=== PATIENT | male | born 1945 | race Caucasian/White ===

== ENCOUNTER 2018-08-17 16:19 | Emergency (ER) | payer MEDICARE, SELFPAY ==
[2018-08-17 16:19] VITALS: BP 183/85; PULSE 78; RESP 14; TEMP 36.8; O2SAT 94
--- NOTE | 2018-08-17 16:47 | ED_ITS ---
HPI - Neuro Symptoms/Deficit General Chief Complaint: Neuro Symptoms/Deficit Stated Complaint: stroke symptoms,sent by walk in Time Seen by Provider: 08/17/18 16:36 Source: patient Mode of arrival: ambulatory Limitations: no limitations History of Present Illness HPI Narrative: Patient is a 73-year-old male who started having difficulty speaking about 3 days ago. He thought he felt that his tongue was big but he did not have any lip swelling unilateral weakness or difficulty walking. Today at a was noticed when he was talking to somebody else had his also thought that he she has seen intermittent right-sided facial droop. He has no sensation changes no visual changes. You can tell that he has some difficulty speaking but is able to have a conversation. He feels like his tongue as fat and swollen. Though it is improving over the past couple of days. Onset (ago): day(s) (3) Timing confirmed by: spouse Location: speech History of same: No Severity: mild Related Data Home Medications Medication Instructions Recorded Confirmed trazodone 50 mg PO HS #0 02/16/11 acyclovir 400 mg PO Q DAY #0 03/28/17 Previous Rx's Medication Instructions Recorded prednisone 40 mg PO DAILY #10 tab 08/17/18 Allergies Allergy/AdvReac Type Severity Reaction Status Date / Time Penicillins Allergy Unknown Unverified 08/29/17 12:01 Review of Systems Review of Systems ROS Unobtainable: All systems reviewed & are unremarkable except as noted in HPI and below Constitutional Denies chills, Denies fever(s), Denies lethargy and Denies weakness Eyes Denies change in vision, Denies eye discharge, Denies irritation and Denies loss of vision ENT Ears, Nose, Mouth, and Throat: Denies dizziness Cardiovascular Denies chest pain, Denies syncope, Denies irregular heart rhythm, Denies lightheadedness, Denies palpitations, Denies dyspnea, Denies dyspnea on exertion and Denies orthopnea Respiratory Denies cough, Denies dyspnea, Denies dyspnea on exertion and Denies wheezing Gastrointestinal Gastrointestinal: Denies abdominal pain, Denies change in bowel habits, Denies diarrhea, Denies nausea and Denies vomiting Genitourinary Denies hematuria, Denies flank pain, Denies urinary incontinence and Denies urinary urgency Musculoskeletal Denies back pain, Denies muscle weakness, Denies numbness and Denies tingling Integumentary/Breasts Denies pruritus, Denies erythema, Denies rash and Denies wounds Neurologic Reports as per HPI, Denies dizziness, Denies syncope, Denies loss of vision, Denies numbness, Denies other visual disturbances, Denies tingling and Denies weakness Endocrine Denies palpitations Allergic/Immunologic Denies wheezing [facility] Social History Smoking Status: Never smoker Social History Smoking Status: Never smoker Comment: PCP Dr. Medina Exam Initial Vital Signs Initial Vital Signs: Vital Signs Temperature 98.2 F 08/17/18 16:19 Pulse Rate 78 08/17/18 16:19 Respiratory Rate 14 08/17/18 16:19 Blood Pressure 183/85 H 08/17/18 16:19 Pulse Oximetry 94 08/17/18 16:19 GENERAL: Well-appearing, well-nourished and in no acute distress. HEENT: Head atraumatic,EOMI, pupils reactive, face symmetric, moist mucous membranes , no obvious tongue CARDIOVASCULAR: Regular rate and rhythm without murmurs, rubs or gallops. RESPIRATORY: Breath sounds equal bilaterally, no wheezes rales or rhonchi. ABDOMEN: Soft, nontender. Normoactive bowel sounds all 4 quadrants. No guarding or rebound. EXTREMITIES: Normal range of motion, no clubbing or edema. Neurovascularly intact NEUROLOGICAL: Alert and oriented x4.Normal gait Cranial nerves II through XII grossly intact. Good mzjcjr-ni-deqf, good vyuo-fh-hrkt, strength equal bilaterally, no dysarthria or aphasia, sensation in tact to soft touch bilaterally, no visual changes, no facial droop SKIN: Warm, dry, no laceration, no petechiae, no rashes or lesions. Scores NIH Stroke Scale Level of Conciousness: Alert, keenly responsive Ask month/age: Answers both questions correctly. Open/close eyes, close hand: Performs both tasks correctly Best gaze horizontal: Normal Visual florez: No visual loss Facial palsy: Normal symetrical movement Left arm drift: No drift for full 10 sec Right arm drift: No drift for full 10 sec Left leg drift: No drift for full 10 sec Right leg drift: No drift for full 10 sec Limb ataxia: Absent Sensory on face/arms/legs: Normal, no sensory loss Best language: No aphasia, normal Dysarthria: Mild to mod,some slurring Extinction or inattention: No abnormality Total NIH Stroke scale score: 1 Course Orders Ordered: Discontinued Medications Sodium Chloride (Normal Saline 0.9%) 1,000 mls @ 150 mls/hr IV CONT SELWYN Last Admin: 08/17/18 18:22 Dose: Not Given Methylprednisolone (Solu-Medrol 125 Mg Vial) 125 mg IV NOW ONE Stop: 08/17/18 18:11 Last Admin: 08/17/18 18:22 Dose: 125 mg Consultations Consultation #1: Dr. Azar Time: 18:19 Vital Signs - 8 hr 08/17/18 16:19 08/17/18 17:12 08/17/18 17:32 Temperature 98.2 F Pulse Rate 78 76 78 Respiratory Rate 14 18 18 Blood Pressure 183/85 H Blood Pressure [Right Arm] 149/82 H 149/82 H Pulse Oximetry 94 93 94 MDM - Neuro Symptoms/Deficit Lab Data Attestation: I reviewed the patient's lab results. Result diagrams: 08/17/18 16:50 08/17/18 16:50 Lab Results 08/17/18 08/17/18 08/17/18 Range/Units 16:50 16:50 16:50 WBC 6.9 (4.5-11.0) X10^3/uL RBC 5.37 (4.5-5.9) X10^6/uL Hgb 16.4 (13.5-17.5) g/dL Hct 47.7 (41-53) % MCV 89.0 (80-100) fL MCH 30.6 (26-34) PG MCHC 34.4 (30-36) % RDW 14.1 (11.6-14.8) % Plt Count 252 (150-400) X10^3/uL Neut % (Auto) 66.6 (50-75) % Lymph % (Auto) 20.6 L (25-40) % Norton % (Auto) 8.4 (3-14) % Eos % (Auto) 4.0 (2-4) % Baso % (Auto) 0.4 (0-2) % Neut # (Auto) 4600 (9519-2970) /uL Lymph # (Auto) 1400 (7634-0538) /uL Norton # (Auto) 600 (0-900) /uL Eos # (Auto) 300 (0-450) /uL Baso # (Auto) 0 (0-100) /uL PT 11.5 (10.1-12.7) SECONDS INR 1.0 (0.9-1.3) APTT 33 (26.4-36.2) SECONDS Sodium 139 (137-145) mmol/L Potassium 4.2 (3.4-5.1) mmol/L Chloride 103 (98-107) mmol/L Carbon Dioxide 24 (22-32) mmol/L BUN 13 (9-20) mg/dL Creatinine 0.70 (0.66-1.25) mg/dL Estimated GFR > 60.0 (>60) mL/min BUN/Creatinine Ratio 18.6 (6-22) Glucose 148 H (80-110) mg/dL Calcium 8.9 (8.4-10.2) mg/dL Total Bilirubin 0.7 (0.2-1.3) mg/dL AST 37 (17-59) IU/L ALT 29 (21-72) IU/L Alkaline Phosphatase 64 (38-126) U/L Total Creatine Kinase 116 (55-170) U/L CK-MB (CK-2) 2.60 H (<2.37) ng/mL CK-MB (CK-2) Rel Index 2.2 (1.5-5.0) % Troponin I < 0.012 (0.01-0.034) ng/mL Total Protein 7.4 (6.3-8.2) g/dL Albumin 4.4 (3.5-5.0) g/dL Globulin 3.0 (1.7-4.1) g/dL Albumin/Globulin Ratio 1.5 (1.0-2.8) Imaging Data CT scan - head: Radiologist's impression: PROCEDURE: CT HEAD/BRAIN WO CON INDICATIONS: speech difficulty x 3 days TECHNIQUE: Noncontrast 4.5 mm thick angled axial sections acquired from the foramen magnum to the vertex, with coronal and sagittal reformats. For radiation dose reduction, the following was used: automated exposure control, adjustment of mA and/or kV according to patient size. COMPARISON: None. FINDINGS: Image quality: Excellent. CSF spaces: Basal cisterns are patent. No extra-axial fluid collections. Ventricles are normal in size and shape. Brain: No midline shift. No intracranial masses or hemorrhage. No acute strokes. Aponte-white matter interface is normal. There is extensive basal ganglia iron deposition as well as iron deposition in deep white matter structures as well as aponte-white junction occipital iron deposition bilaterally. This is felt to be a benign process. Skull and face: Calvarium and visualized facial bones are intact, without aaron spicious lesions. Sinuses: Large left maxillary sinus mucous retention cyst. Minimal patchy marry ateral ethmoid disease. IMPRESSION: 1. No evidence of acute stroke, hemorrhage, or mass. 2. Extensive symmetric iron deposition incidentally noted. Dictated by: Terrell Carlson M.D. on 08/17/2018 at 17:58 Approved by: Terrell Carlson M.D. on 08/17/2018 at 18:02 ECG Data Attestation: I personally reviewed and interpreted this ECG as follows: Prior ECG tracings: not available for review Interpretation: Sinus rhythm rate [address] changes no T-wave inversions appear interval 188 MDM Narrative Medical decision making narrative: Patient really feels like his tongue is enlarged and is causing his difficulty speaking. Possible allergic reaction versus CVA versus TIA. He is comprehending and getting appropriate words out he has no other focal deficits. This is been going on for the last 3 days, therefore not a tPA candidate. No large vessel occlusion signs or symptoms. He is not on an CRISTAL-inhibitor no angioedema managing his own secretions. I spoke with Dr. Azar. We both agree with outpatient followup course of prednisone. I have discussed with patient and supple stroke and may need MRI and echocardiogram as outpatient. I discussed all findings with the patient and , Education has been performed regarding treatment plan, diagnosis, warning signs and symptoms and all concerns have been addressed. Verbally agree with and understood all of the above. Discharge Plan Departure Patient Disposition: Home Clinical Impression: Allergic reaction Qualifiers: Encounter type: initial encounter Qualified Code(s): T78.40XA - Allergy, unspecified, initial encounter Discharge Date/Time: 08/17/18 18:40 Interventions: ED Discharge Assessment Last Done: 08/17/18 18:39 Instructions: DI for Transient Ischemic Attack, DI for General Allergic Reactions Activity Restrictions/Additional Instructions: *You have been diagnosed with allergic reaction *What to do: At this time it is likely that you have possible allergic reaction causing her tongue to be swollen. However stroke has not been completely ruled out would need MRI and echocardiogram which her PCP can order. *Continue to take medications as directed Prednisone 40 mg once a day for 5 days *Follow up with your primary care provider in 2-3 days *Return to ER if you should have any facial droop arm weakness leg weakness difficulty walking or any new, worsening or concerning symptoms Prescriptions: New prednisone 20 mg tablet 40 mg PO DAILY Qty: 10 RF: 0 No Action trazodone 50 MG tablet 50 mg PO HS Qty: 0 RF: 0 acyclovir 400 MG tablet 400 mg PO Q DAY Qty: 0 RF: 0 Referrals: Teena Medina MD [Primary Care Provider] -
[2018-08-17 17:05] LABS: Add Manual Diff / Slide Review NO; Basophils Absolute Auto 0 /uL (0-100); Basophils Percent Auto 0.4 % (0-2); Eosinophils Absolute Auto 300 /uL (0-450); Hematocrit 47.7 % (41-53); Hemoglobin 16.4 g/dL (13.5-17.5); Lymphocytes Absolute Auto 1400 /uL (1100-4500); Lymphocytes Percent Auto 20.6 % (25-40); Mean Corpuscular HGB Conc 34.4 % (30-36); Mean Corpuscular Hemoglobin 30.6 PG (26-34); Monocytes Absolute Auto 600 /uL (0-900); Monocytes Percent Auto 8.4 % (3-14); Neutrophils Absolute Auto 4600 /uL (1500-7000); Neutrophils Percent Auto 66.6 % (50-75); Platelet Count 252 X10^3/uL (150-400); Red Blood Cell Count 5.37 X10^6/uL (4.5-5.9); Red Cell Distribution Width 14.1 % (11.6-14.8); White Blood Cell Count 6.9 X10^3/uL (4.5-11.0)
[2018-08-17 17:11] LABS: Prothrombin Time 11.5 SECONDS (10.1-12.7)
[2018-08-17 17:12] VITALS: BP 149/82; PULSE 76; RESP 18; O2SAT 93
[2018-08-17 17:13] LABS: Alanine Aminotransferase 29 IU/L (21-72); Albumin 4.4 g/dL (3.5-5.0); Albumin Globulin Ratio 1.5 (1.0-2.8); Alkaline Phosphatase 64 U/L (38-126); Aspartate Aminotransferase 37 IU/L (17-59); BUN Creatinine Ratio 18.6 (6-22); Bilirubin Total 0.7 mg/dL (0.2-1.3); Blood Urea Nitrogen 13 mg/dL (9-20); Calcium 8.9 mg/dL (8.4-10.2); Carbon Dioxide 24 mmol/L (22-32); Chloride 103 mmol/L (98-107); Creatine Kinase 116 U/L (55-170); Estimated Glomerular Filt Rate > 60.0 mL/min (>60); Glucose 148 mg/dL (80-110); Potassium 4.2 mmol/L (3.4-5.1); Sodium 139 mmol/L (137-145); Total Protein 7.4 g/dL (6.3-8.2)
[2018-08-17 17:14] LABS: HEMOLYSIS 76 (0-50); PTT Partial Thromboplastin Tim 33 SECONDS (26.4-36.2)
[2018-08-17 17:24] LABS: Troponin I < 0.012 ng/mL (0.01-0.034)
[2018-08-17 17:28] LABS: CKMB % Relative Index 2.2 % (1.5-5.0)
[2018-08-17 17:32] VITALS: BP 149/82; PULSE 78; RESP 18; O2SAT 94
[2018-08-17] MEDS: methylPREDNISolone 125 MG/2 ML VIAL IV (18:22)
[2018-08-17 18:37] VITALS: BP 142/80; PULSE 72; RESP 18; O2SAT 98
== END 2018-08-17 18:40 | disposition home or self-care (01) ==
PROVIDERS: Emergency Provider Emergency Medicine; PCP Family Medicine
DX: T78.40XA Allergy, unspecified, initial encounter (principal); R47.89 Other speech disturbances; R29.810 Facial weakness
CPT/HCPCS: 36591; 70450; 80053; 82550; 82553; 84484; 85025; 85610; 85730; 93005; 96374; 99283; 99284; J2930

== ENCOUNTER → 2018-08-22 05:53 | Outpatient (CLI) | payer MEDICARE, SELFPAY ==
--- NOTE | 2018-08-22 | DI.MRI.S_ITS ---
PROCEDURE: MR STROKE Pre- and post-contrast brain MRI, non-contrast brain MR angiogram, pre- and postcontrast neck MR angiogram INDICATIONS: APHASIA TECHNIQUE: Brain: Noncontrast axial T1 spin echo, axial T2 fast spin echo, sagittal and axial FLAIR, coronal T2 fast spin echo, axial gradient echo, axial diffusion and ADC through the brain. After the administration of contrast, axial 3D VIBE of the cranial vasculature and brain. Brain MRA: Non-contrast 3-D time of flight MR angiogram, with multiple uwdchce-rrimphwof-zdhxzrowkk (MIP) reformats performed. Neck MRA: Axial and sagittal TruFISP through the neck. Coronal dynamic MR angiogram during administration of contrast in the arterial and venous phases, with 3-dimenstional poumrqa-rmxgyovjv-rfcvpzjywz (MIP) reformats constructed from subtraction images. COMPARISON: [facility], CT, CT HEAD/BRAIN WO CON, 08/17/2018, 16:50. FINDINGS: Image quality: Excellent. BRAIN: CSF spaces: Ventricles are normal in size and shape. Basal cisterns are patent. No extra-axial fluid collections. Brain: No intracranial bleeds or mass effects. Aponte-white matter interface is normal. A small focus of restricted diffusion is noted in the left thalamus compatible with a subacute infarct. An old, small, lacunar infarct noted in the left brady radiata. Moderate periventricular and subcortical white matter chronic microvascular ischemic changes. There is moderate, diffuse cerebral volume loss. Brainstem appears normal. Normal intravascular flow voids are present. No abnormal intracranial enhancement. Skull and face: Calvarial marrow signal is normal. Orbits appear normal. Sinuses: Mucosal thickening noted in the maxillary sinuses bilaterally. Bilateral maxillary sinus mucus retention cyst versus polyps. Left sphenoid sinus mucus rotation cyst versus polyp. mastoids are clear. BRAIN MR ANGIOGRAM: Anterior circulation: Intracranial internal carotid arteries are normal in size and enhancement. The flow within the paired anterior cerebral arteries is normal and symmetric. The flow within the middle cerebral arteries is normal and symmetric. The anterior communicating artery is seen. No stenoses, occlusions, or aneurysms. Posterior circulation: The visualized portions of the vertebral arteries demonstrate normal caliber, and join to form a normal appearing basilar artery. The flow within the posterior cerebral arteries is normal and symmetric. No stenoses, occlusions, or aneurysms. NECK MR ANGIOGRAM: Carotids: Great vessels demonstrate bovine variant anatomy as they arise from the aortic arch. The origins of the common carotid arteries appear patent. The calibers and courses of both common carotid arteries are normal. The bifurcation regions appear normal bilaterally. The internal carotid arteries demonstrate normal course and caliber. Posterior circulation: The origins of the vertebral arteries appear patent. More superior portions of both vertebral arteries demonstrate normal course and caliber, and join to form a normal appearing basilar artery. Miscellaneous: Subclavian arteries appear patent. Pre-contrast images through the neck show no soft tissue abnormalities. IMPRESSION: BRAIN MRI: 1. Subacute left thalamic lacunar infarct. 2. Chronic left brady radiata lacunar infarct. 3. Mild, diffuse cerebral volumes. 4. Moderate periventricular and subcortical white matter chronic microvascular ischemic changes. 5. No suspicious intracranial postcontrast enhancement. BRAIN MR ANGIOGRAM: Negative examination. NECK MR ANGIOGRAM: Negative examination. Dictated by: Isaeblla Cloud MD, PhD on 08/22/2018 at 11:53 Approved by: Isabella Cloud MD, PhD on 08/22/2018 at 12:01
== END ==
PROVIDERS: PCP Family Medicine; Visit Provider Family Medicine
DX: I63.81 Other cerebral infarction due to occlusion or stenosis of small artery (principal); R47.01 Aphasia
CPT/HCPCS: 70553; A9579

== ENCOUNTER → 2018-08-27 07:48 | Outpatient (CLI) | payer MEDICARE, SELFPAY ==
--- NOTE | 2018-08-27 | DI.ECHO.S_ITS ---
[facility] +---------+ : : [address] : : [place], [place] : : : : [id number] : : : : Phone: [phone] Echocardiogram Report + + :Name: AMANUEL ORNELAS Study Date: 08/27/2018 Height: 68 in : :[facility] Exam Location: [facility] Weight: 174 lb : : Gender: Male BSA: 1.9 m2 : :: 1945 Age: 73 yrs BP: 120/90 mmHg: :Reason For Study: Aphasia : :Ordering Physician: Krish : :Nissa Performed By: Jayshree Page : + + Interpretation Summary 1) Mildly increased left ventricular thickness with normal size, wall motion, and systolic function (EF 60-65%). 2) Normal right ventricular size and function. 3) The right coronary cusp and left coronary cusp of the aortic valve are mostly fused. Possible bicuspid aortic valve. 4) There is mild aortic regurgitation. 5) There is mild aortic stenosis. 6) The aortic root is moderately dilated at 4.5cm. 7) Mild atherosclerotic plaque(s) in the aortic arch. 8) Sinus rhythm during the study. 9) No prior Echo available for comparison. Procedure: A two-dimensional transthoracic echocardiogram with color flow and Doppler was performed. The study quality was technically adequate. There is no prior echocardiogram noted for this patient. The patient was in normal sinus rhythm during the exam. The patient had occasional PVCs during the exam. Left Ventricle: Left ventricular wall thickness is mildly increased. The left ventricle is normal in size. The ejection fraction is estimated to be 60- 65%. There are no focal wall motion abnormalities. Right Ventricle: The right ventricle is normal in size and function. Atria: The left atrium is mildly dilated. Right atrial size is normal. There is no Doppler evidence for an interatrial shunt. Mitral Valve: There is a flat closure plane of the the mitral valve leaflets. There is mild mitral annular calcification. There is trace mitral regurgitation. Aortic Valve: The right coronary cusp and left coronary cups of the aortic valve are mostly fused. Possible bicuspid aortic valve. There is mild aortic stenosis. There is mild aortic regurgitation. Tricuspid Valve: The tricuspid valve is normal in structure and function. There is trace tricuspid regurgitation. The right ventricular systolic pressure is estimated to be at least 36 mmHg based on an estimated right atrial pressure of 3 mm Hg. Pulmonic Valve: The pulmonic valve is not well seen, but is grossly normal. There is mild pulmonic regurgitation. Great Vessels: The aortic root is moderately dilated. The ascending aorta is at the upper limits of normal in size. Mild atherosclerotic plaque(s) in the aortic arch. The pulmonary artery is not well visualized, but is probably normal size. The IVC is of normal diameter and collapses greater than 50% with a sniff. This suggests a low right atrial pressure of 3 mm Hg. MMode/2D Measurements & Calculations LVIDd: 4.9 cm LVOT diam: 2.1 cm LVIDs: 2.9 cm Ao root diam: 4.5 cm FS: 40.7 % asc Aorta Diam: 3.4 cm EPSS: 1.1 cm IVSd: 1.2 cm LVPWd: 0.89 cm LV sousa. diameter/BSA (cm/m^2): 2.5 LV sys. diameter/BSA (cm/m^2): 1.5 LA A2 area: 21.3 cm2 RA long axis: 5.0 cm LA A4 area: 21.2 cm2 RA area: 17.7 cm2 LA length (vol): 5.6 cm RA vol: 53.0 ml LA vol: 68.4 ml RA : 27.5 ml/m2 LA vol index: 35.5 ml/m2 IVC diam: 1.5 cm RVD1 (basal): 4.3 cm Doppler Measurements & Calculations Ao V2 max: 230.4 cm/sec LVOT Max Danny: 87.2 cm/sec Ao V2 mean: 156.6 cm/sec LV V1 max P.0 mmHg Ao max P.2 mmHg LV V1 VTI: 20.6 cm Ao mean P.0 mmHg JULISSA(I,D): 1.5 cm2 Ao V2 VTI: 47.8 cm JULISSA(V,D): 1.3 cm2 sev ratio: 0.43 JULISSA indexed to BSA (cm^2/m^2): 0.79 AI P1/2t: 392.8 msec AI dec slope: 325.1 cm/sec2 MV E max danny: 64.5 cm/sec TR max danny: 287.1 cm/sec MV A max danny: 81.9 cm/sec TR max P.0 mmHg MV E/A: 0.79 PA V2 max: 59.8 cm/sec Med Peak E' Danny: 4.3 cm/sec PA V2 mean: 40.4 cm/sec E/E' med: 14.9 PA mean P.73 mmHg Lat Peak E' Danny: 6.1 cm/sec PA Accel Time: 0.07 sec E/E' lat: 10.6 E/e' average: 12.8 MV dec time: 0.28 sec MV P1/2t: 81.7 msec MV P1/2t max danny: 64.2 cm/sec SV(LVOT): 72.5 ml MVA(2t): 2.7 cm2 Reading Physician:12:51 PM
== END ==
PROVIDERS: PCP Family Medicine; Visit Provider Family Medicine
DX: I35.2 Nonrheumatic aortic (valve) stenosis with insufficiency (principal); I37.1 Nonrheumatic pulmonary valve insufficiency; I70.0 Atherosclerosis of aorta; R47.01 Aphasia
CPT/HCPCS: 93306

== ENCOUNTER → 2018-12-13 09:35 | Outpatient (CLI) | payer MEDICARE, SELFPAY ==
--- NOTE | 2018-12-13 | DI.US.S_ITS ---
PROCEDURE: US PERIPH VENOUS LOW EXTREM LT INDICATIONS: LEFT LEG PAIN AND SWELLING TECHNIQUE: Real-time imaging, as well as color and pulse Doppler interrogation, were performed of the lower extremity deep veins from the inguinal ligament to the popliteal fossa. COMPARISON: None. FINDINGS: The common femoral, femoral and popliteal veins are normally compressible, and free of intraluminal thrombus. Color and pulse Doppler demonstrate normal phasic intraluminal flow. There is normal augmentation response to distal compression maneuver. Soft tissue swelling is present along the medial aspect of the ankle with fluid contained within the adjacent tendon sheaths. IMPRESSION: 1. No evidence of left lower extremity deep vein thrombosis. 2. Possible medial flexor tenosynovitis at the level of the ankle. The need for better characterization utilizing MRI may be determined clinically. Dictated by: Sergey Cross M.D. on 12/13/2018 at 9:37 Approved by: Sergey Cross M.D. on 12/13/2018 at 9:38
== END ==
PROVIDERS: PCP Family Medicine; Visit Provider Family Medicine
DX: M25.572 Pain in left ankle and joints of left foot (principal); M25.562 Pain in left knee; R60.9 Edema, unspecified
CPT/HCPCS: 93971

== ENCOUNTER 2020-04-06 08:23 | Emergency (ER) | payer MEDICARE, SELFPAY ==
[2020-04-06] VITALS (15 sets, daily range): BP systolic 123–202; BP diastolic 78–92; PULSE 66–79; RESP 14–23; TEMP 36.4; O2SAT 91–98; BMI 23.8
--- NOTE | 2020-04-06 08:32 | DI.RAD.S_ITS ---
PROCEDURE: XR CHEST 1V INDICATIONS: chest pain TECHNIQUE: One view of the chest was acquired. COMPARISON: [facility], CHEST 2 VIEW, 03/17/2013, 9:15. [facility], CHEST 2 VIEW, 03/20/2013, 6:19. [facility], CHEST 2 VIEW, 04/24/2013, 13:08. FINDINGS: Surgical changes and devices: None. Lungs and pleura: On this semiupright portable chest examination, no large pneumothorax or large pleural effusions are seen. No focal infiltrates are seen. Mediastinum: The cardiac contours are within normal limits. The aorta demonstrates calcification and tortuosity. Bones and chest wall: No suspicious bony lesions. Remote right posterior rib fractures are seen. Age-appropriate bony degenerative changes are seen. Overlying soft tissues appear unremarkable. IMPRESSION: No acute abnormality is seen. Note made of remote right posterior rib fractures. Dictated by: Roosevelt Solis M.D. on 04/06/2020 at 8:09 Approved by: Roosevelt Solis M.D. on 04/06/2020 at 8:10
[2020-04-06 08:56] LABS: Add Manual Diff / Slide Review NO; Basophils Absolute Auto 0 /uL (0-100); Basophils Percent Auto 0.1 % (0-2); Eosinophils Absolute Auto 0 /uL (0-450); Eosinophils Percent Auto 0.6 % (2-4); Hematocrit 47.9 % (41-53); Hemoglobin 15.9 g/dL (13.5-17.5); Lymphocytes Absolute Auto 600 /uL (1100-4500); Lymphocytes Percent Auto 7.1 % (25-40); Mean Corpuscular HGB Conc 33.1 % (30-36); Mean Corpuscular Hemoglobin 30.4 PG (26-34); Mean Corpuscular Volume 91.7 fL (80-100); Monocytes Absolute Auto 300 /uL (0-900); Monocytes Percent Auto 3.8 % (3-14); Neutrophils Absolute Auto 7000 /uL (1500-7000); Neutrophils Percent Auto 88.4 % (50-75); Platelet Count 239 X10^3/uL (150-400); Red Blood Cell Count 5.23 X10^6/uL (4.5-5.9); Red Cell Distribution Width 14.8 % (11.6-14.8); White Blood Cell Count 7.9 X10^3/uL (4.5-11.0)
[2020-04-06 09:03] LABS: Prothrombin Time 11.6 SECONDS (10.1-12.7)
[2020-04-06 09:05] LABS: PTT Partial Thromboplastin Tim 32 SECONDS (26.4-36.2)
[2020-04-06 09:10] LABS: Alanine Aminotransferase 20 IU/L (<50); Albumin 4.3 g/dL (3.5-5.0); Albumin Globulin Ratio 1.4 (1.0-2.8); Alkaline Phosphatase 76 U/L (38-126); Aspartate Aminotransferase 29 IU/L (17-59); BUN Creatinine Ratio 27.1 (6-22); Bilirubin Total 0.6 mg/dL (0.2-1.3); Blood Urea Nitrogen 19 mg/dL (9-20); Calcium 8.9 mg/dL (8.4-10.2); Carbon Dioxide 33 mmol/L (22-32); Chloride 101 mmol/L (98-107); Creatine Kinase 71 U/L (55-170); Estimated Glomerular Filt Rate > 60.0 mL/min (>60); Globulin 3.1 g/dL (1.7-4.1); Glucose 155 mg/dL (80-110); HEMOLYSIS < 15 (0-50); Lipase 63 U/L (23-300); Potassium 4.4 mmol/L (3.4-5.1); Sodium 138 mmol/L (137-145); Total Protein 7.4 g/dL (6.3-8.2)
[2020-04-06 09:19] LABS: Troponin I < 0.012 ng/mL (0.01-0.034)
--- NOTE | 2020-04-06 09:42 | ED_ITS ---
HPI - Neuro Symptoms/Deficit General Chief Complaint: Neuro Symptoms/Deficit Stated Complaint: dizzy,stumbling,pulse is low Time Seen by Provider: 04/06/20 09:05 Source: patient Mode of arrival: Ambulatory Limitations: no limitations History of Present Illness HPI Narrative: This is a 75-year-old male comes to the emergency department with complaint of feeling dizzy and off balance. He states he stumbling around. Patient states that he went to bed at 10:30 a.m. last night, he woke up at 3:30 a.m. and had some symptoms trying to walk to the bathroom and returning to bed. Would sort of fatigue over time but never resolved and would return when he would get up and move again. Laying in bed does not bother him but when he stands up or walks around he feels like the whole world sort of shifts. It is not a spinning feeling but more of a single movement. He went back to sleep woke up at 5:00 a.m. continued to have the same symptoms but not as intensely. Checked his blood pressure which was between the 140s and 120s noted his heart rate was in the 50s and is normally in the 60s. He has had some mild nausea with symptoms. No vomiting. No headache, no vision changes, no difficulty with speech, no facial droop. No numbness tingling or weakness in his extremities. No issues with bowel movements. He has chronic urinary retention but states did not have any issues today. He does feel little bit more tired and fatigued. He has a history of a stroke 2 years ago he had expressive aphasia and facial droop. He has had episodes of dizziness or almost vertigo like symptoms but states this feels different. He does take an aspirin 81 mg daily, lisinopril, pravastatin and Flomax as well as acyclovir. Denies tobacco, alcohol or illicit On Anticoagulants: No (asa 81mg) Related Data Home Medications Medication Instructions Recorded Confirmed acyclovir 400 mg PO Q DAY #0 03/28/17 02/26/19 albuterol sulfate 90 mcg/actuation 2 puff INHALATION Q6H PRN 02/26/19 02/26/19 aerosol inhaler aspirin 81 mg tablet,delayed 81 mg PO DAILY 02/26/19 02/26/19 release calcium carbonate 500 mg calcium 500 mg PO DAILY 02/26/19 02/26/19 (1,250 mg) tablet lisinopril 2.5 mg tablet 2.5 mg PO DAILY 02/26/19 02/26/19 multivitamin 1 tab PO DAILY 02/26/19 02/26/19 pravastatin 10 mg tablet 10 mg PO DAILY 02/26/19 02/26/19 tamsulosin 0.4 mg capsule 0.4 mg PO DAILY 02/26/19 02/26/19 zinc 50 mg tablet 50 mg PO DAILY 02/26/19 02/26/19 Previous Rx's Medication Instructions Recorded meclizine 25 mg PO TID PRN #10 tab 04/06/20 Allergies Allergy/AdvReac Type Severity Reaction Status Date / Time famciclovir [From Famvir] Allergy Mild Verified 02/26/19 10:23 Penicillins Allergy Unknown Unverified 02/26/19 10:23 Review of Systems Review of Systems ROS Unobtainable: All systems reviewed & are unremarkable except as noted in HPI and below Patient History Medical History (Updated 04/06/20 @ 12:44 by Alayna Patrick DO) CVA (cerebral vascular accident) Dyslipidemia Hypertension Social History Smoking Status: Never smoker Smoking Status: Never smoker alcohol intake frequency: 0-2 drinks per day Substance Use Type: does not use Exam Narrative Exam Narrative: GEN: well nourished, well appearing male, alert and oriented x 3, patient appears to be in mild distress. HEENT: Atraumatic, pupils are equal round reactive to light, extraocular movements are intact, no nystagmus, nares are clear. Throat is clear without any exudates, erythema, tonsillar enlargement or uvular, no facial droop appreciated. Deviation HEART: Regular rate and rhythm without murmur, clicks, rubs. Pulses are equal in upper and lower extremities LUNGS:Lungs clear to auscultation, no wheezes, rales, crackles, chest moves symmetrically ABD:bowel sounds normal, soft, non-tender, no guarding, rebound, rigidity, no masses noted, no hepatosplenomegaly MSCL: Non-tender, no muscle atrophy, muscles strength 5/5 upper and lower extremities, full range of motion NEURO:CN 2-12 intact, sensation normal, reflexes 2/4 upper and lower extremities. finger nose finger test normal, heel [place] test normal Initial Vital Signs Initial Vital Signs: Vital Signs Pulse Rate 72 04/06/20 08:30 Respiratory Rate 16 04/06/20 08:30 Blood Pressure 187/86 H 04/06/20 08:30 Pulse Oximetry 98 04/06/20 08:30 Scores NIH Stroke Scale Level of Conciousness: Alert, keenly responsive Ask month/age: Answers both questions correctly. Open/close eyes, close hand: Performs both tasks correctly Best gaze horizontal: Normal Visual florez: No visual loss Facial palsy: Normal symetrical movement Left arm drift: No drift for full 10 sec Right arm drift: No drift for full 10 sec Left leg drift: No drift for full 5 sec Right leg drift: No drift for full 5 sec Limb ataxia: Absent Sensory on face/arms/legs: Normal, no sensory loss Best language: No aphasia, normal Dysarthria: Normal Extinction or inattention: No abnormality Total NIH Stroke scale score: 0 Course Orders Ordered: ED Orders 04/06/20 10:48 MR stroke Stat Discontinued Medications Aspirin (Aspirin 81 Mg Chew Tab) 324 mg PO NOW ONE Stop: 04/06/20 10:38 Last Admin: 04/06/20 12:19 Dose: 324 mg Documented by: BTONER Labetalol HCl (Labetalol 20 Mg/4 Ml Syringe) 5 mg IV NOW ONE Stop: 04/06/20 10:50 Last Admin: 04/06/20 12:18 Dose: 5 mg Documented by: BTONER Vital Signs Vital signs: Vital Signs - 8 hr 04/06/20 12:07 04/06/20 12:08 04/06/20 12:18 Pulse Rate 79 77 76 Respiratory Rate 18 15 Blood Pressure 169/85 H 169/83 H Pulse Oximetry 93 95 04/06/20 12:23 04/06/20 12:25 04/06/20 12:30 Pulse Rate 74 71 66 Respiratory Rate 19 19 16 Blood Pressure 150/92 H 123/78 150/82 H Pulse Oximetry 95 94 95 04/06/20 13:00 04/06/20 13:07 Pulse Rate 68 68 Respiratory Rate 18 Blood Pressure 152/91 H 152/91 H Pulse Oximetry 94 MDM - Neuro Symptoms/Deficit Lab Data Attestation: I reviewed the patient's lab results. Result diagrams: 04/06/20 08:45 11/17/20 08:45 Labs: Lab Results 04/06/20 04/06/20 04/06/20 Range/Units 08:45 08:45 08:45 WBC 7.9 (4.5-11.0) X10^3/uL RBC 5.23 (4.5-5.9) X10^6/uL Hgb 15.9 (13.5-17.5) g/dL Hct 47.9 (41-53) % MCV 91.7 (80-100) fL MCH 30.4 (26-34) PG MCHC 33.1 (30-36) % RDW 14.8 (11.6-14.8) % Plt Count 239 (150-400) X10^3/uL Neut % (Auto) 88.4 H (50-75) % Lymph % (Auto) 7.1 L (25-40) % [place] % (Auto) 3.8 (3-14) % Eos % (Auto) 0.6 L (2-4) % Baso % (Auto) 0.1 (0-2) % Neut # (Auto) 7000 (3028-1750) /uL Lymph # (Auto) 600 L (2107-7910) /uL [place] # (Auto) 300 (0-900) /uL Eos # (Auto) 0 (0-450) /uL Baso # (Auto) 0 (0-100) /uL PT 11.6 (10.1-12.7) SECONDS INR 1.0 (0.9-1.3) APTT 32 (26.4-36.2) SECONDS Sodium 138 (137-145) mmol/L Potassium 4.4 (3.4-5.1) mmol/L Chloride 101 (98-107) mmol/L Carbon Dioxide 33 H (22-32) mmol/L BUN 19 (9-20) mg/dL Creatinine 0.70 (0.66-1.25) mg/dL Estimated GFR > 60.0 (>60) mL/min BUN/Creatinine Ratio 27.1 H (6-22) Glucose 155 H (80-110) mg/dL Calcium 8.9 (8.4-10.2) mg/dL Total Bilirubin 0.6 (0.2-1.3) mg/dL AST 29 (17-59) IU/L ALT 20 (<50) IU/L Alkaline Phosphatase 76 (38-126) U/L Total Creatine Kinase 71 (55-170) U/L CK-MB (CK-2) TNP CK-MB (CK-2) Rel Index TNP Troponin I < 0.012 (0.01-0.034) ng/mL Total Protein 7.4 (6.3-8.2) g/dL Albumin 4.3 (3.5-5.0) g/dL Globulin 3.1 (1.7-4.1) g/dL Albumin/Globulin Ratio 1.4 (1.0-2.8) Lipase 63 (23-300) U/L Imaging Data Chest x-ray: Radiologist's Impression: [address] [id number] ReportSigned Patient: Jareth Segundo JMR#: [id number]: 4Acct:[id number]/Sex: 75 / MDate of Service: 04/06/20Loc: EDAccession Number: [id number] Procedure: XR chest 1V Ordering Provider: Alayna Patrick D.O. PROCEDURE: XR CHEST 1V INDICATIONS: chest pain TECHNIQUE: One view of the chest was acquired. COMPARISON: [facility], CHEST 2 VIEW, 03/17/2013, 9:15. [facility], CHEST 2 VIEW, 03/20/2013, 6:19. [facility], CHEST 2 VIEW, 04/24/2013, 13:08. FINDINGS: Surgical changes and devices: None. Lungs and pleura: On this semiupright portable chest examination, no large pneumothorax or large pleural effusions are seen. No focal infiltrates are seen. Mediastinum: The cardiac contours are within normal limits. The aorta demonstrates calcification and tortuosity. Bones and chest wall: No suspicious bony lesions. Remote right posterior rib fractures are seen. Age-appropriate bony degenerative changes are seen. Overlying soft tissues appear unremarkable. IMPRESSION: No acute abnormality is seen. Note made of remote right posterior rib fractures. Dictated by: Roosevelt Solis M.D. on 04/06/2020 at 8:09 Approved by: Roosevelt Solis M.D. on 04/06/2020 at 8:10 MRI stroke : Radiologist's Impression: [facility] [place] [id number] Resonance Rep ortSigned Patient: Jareth Segundo JMR#: [id number]: 4Acct:[id number]/Sex: 75 / MDate of Service: 04/06/20Loc: EDAccession Number: [id number] Procedure: MR stroke Ordering Provider: Alayna Patrick D.O. PROCEDURE: MR STROKE Pre- and post-contrast brain MRI, non-contrast brain MR angiogram, pre- and postcontrast neck MR angiogram INDICATIONS: ataxia, off balance TECHNIQUE: Brain: Noncontrast axial T1 spin echo, axial T2 fast spin echo, sagittal and axial FLAIR, coronal T2 fast spin echo, axial gradient echo, axial diffusion and ADC through the brain. After the administration of contrast, axial 3D VIBE of the cranial vasculature and brain. Brain MRA: Non-contrast 3-D time of flight MR angiogram, with multiple hgonvep-kppyxfavs-gbkapzmydi (MIP) reformats performed. Neck MRA: Axial and sagittal TruFISP through the neck. Coronal dynamic MR krystin ogram during administration of contrast in the arterial and venous phases, with 3- dimenstional kzvrxkc-ewnphstsd-biltovjayt (MIP) reformats constructed from subtraction images. COMPARISON: [facility], MR, MR STROKE, 08/22/2018, 6:54. [facility], CT, CT HEAD/BRAIN WO CON, 04/06/2020, 9:49. FINDINGS: Image quality: Diagnostic, with note made of motion artifact. BRAIN: CSF spaces: Ventricles are normal in size and shape. Basal cisterns are patent. No extra-axial fluid collections. Brain: No intracranial bleeds or mass effects. Aponte-white matter interface is normal. Brain parenchymal volume loss is seen. Chronic small vessel ischemic changes are seen. Diffusion weighted images show no acute ischemic insults. The remote infarction of the deep white matter of the left frontal lobe can be seen. Brainstem appears normal. Normal intravascular flow voids are present. No abnormal intracranial enhancement. Symmetric basal ganglia calcium deposition is again seen. Skull and face: Calvarial marrow signal is normal. Orbits appear normal. Sinuses: There is a left sphenoid sinus mucous retention cyst as well as maxillary sinus mucous retention cysts. Sinuses and mastoids are otherwise relatively clear. BRAIN MR ANGIOGRAM: Anterior circulation: Intracranial internal carotid arteries are normal in size and enhancement. The flow within the paired anterior cerebral arteries is normal and symmetric. The flow within the middle cerebral arteries is normal and symmetric. The anterior communicating artery is seen. No stenoses, occlusions, or aneurysms. Posterior circulation: The visualized portions of the vertebral arteries demonstrate normal caliber, and join to form a normal appearing basilar artery. The flow within the posterior cerebral arteries is normal and symmetric. No stenoses, occlusions, or aneurysms. NECK MR ANGIOGRAM: Carotids: Great vessels demonstrate a conventional anatomy as they arise from the aortic arch. The origins of the common carotid arteries appear patent. The calibers and courses of both common carotid arteries are normal. The bifurcation regions appear normal bilaterally. The internal carotid arteries demonstrate normal course and caliber. Posterior circulation: The origins of the vertebral arteries appear patent. More superior portions of both vertebral arteries demonstrate normal course and caliber, and join to form a normal appearing basilar artery. Miscellaneous: Subclavian arteries appear patent. Pre-contrast images through the neck show no soft tissue abnormalities. IMPRESSION: BRAIN MRI: No findings of acute or subacute infarction can be seen. Note is made of age-appropriate brain parenchymal volume loss and chronic small vessel ischemic changes. Remote infarction seen of the deep white matter of the left frontal lobe. No masses or abnormal enhancement can be seen. BRAIN MR ANGIOGRAM: No significant intracranial arterial abnormality is seen. NECK MR ANGIOGRAM: Within the arteries of the neck, no hemodynamically significant stenosis can be seen. Dictated by: Roosevelt Solis M.D. on 04/06/2020 at 10:57 Approved by: Roosevelt Solis M.D. on 04/06/2020 at 11:03 ECG Data Prior ECG tracings: available for review Interpretation: NSR, prolonged QTC 516, pr 188, rate of 68, QRS 112. Nonspeicfic change. MDM Narrative Medical decision making narrative: Patient comes in distally having some kind of balance issues. Concern for CVA although his NIH is 0. Is able to get an MRI which was negative. Discussed with Dr. Medina who will follow with patient. Stroke Core Measures Exclusion Criteria TPA in CVA: Symptom Onset >3 or 4.5 Hours Discharge Plan Departure Patient Disposition: Home Clinical Impression: Balance problem Activity Restrictions/Additional Instructions: Your imaging and evaluation today do not show any acute signs of stroke and your MRI also does not show any acute signs. There is an old stroke on your MRI today. Continue home medications as prescribed. If you find it helpful you can take meclizine 1-2 tablets every 6-8 hours. Return to the ER for fevers, lightheadedness, passing out, rapidly worsening symptoms, if you feel your unsafe ambulating, persistent vomiting, new weakness numbness or tingling, difficulty with speech or other new or concerning symptoms. Prescriptions: New meclizine 25 mg tablet 25 mg PO TID PRN (Reason: dizziness) Qty: 10 RF: 0 No Action acyclovir 400 MG tablet 400 mg PO Q DAY Qty: 0 RF: 0 lisinopril 2.5 mg tablet 2.5 mg PO DAILY RF: 0 aspirin [Aspir-81] 81 mg tablet,delayed release (DR/EC) 81 mg PO DAILY RF: 0 tamsulosin 0.4 mg capsule 0.4 mg PO DAILY RF: 0 pravastatin 10 mg tablet 10 mg PO DAILY RF: 0 albuterol sulfate [ProAir HFA] 90 mcg/actuation HFA aerosol inhaler 2 puff INHALATION Q6H PRNRF: 0 zinc 50 mg tablet 50 mg PO DAILY RF: 0 multivitamin [Daily Multi-Vitamin] Tablet 1 tab PO DAILY RF: 0 calcium carbonate 500 mg calcium (1,250 mg) tablet 500 mg PO DAILY RF: 0 Referrals: Teena Medina MD [Primary Care Provider] -
--- NOTE | 2020-04-06 09:42 | DI.CT.S_ITS ---
PROCEDURE: CT HEAD/BRAIN WO CON INDICATIONS: feels off balance, new. hx cva w/ expressive aphasia TECHNIQUE: Noncontrast 4.5 mm thick angled axial sections acquired from the foramen magnum to the vertex, with coronal and sagittal reformats. For radiation dose reduction, the following was used: automated exposure control, adjustment of mA and/or kV according to patient size. COMPARISON: [facility], MR, MR STROKE, 08/22/2018, 6:54. [facility], CT, CT HEAD/BRAIN WO CON, 08/17/2018, 16:50. FINDINGS: Image quality: Excellent. CSF spaces: Basal cisterns are patent. No extra-axial fluid collections. The ventricles are symmetric in size and shape. Brain: No intracranial bleeds or masses. Again noted is extensive bilateral symmetric iron deposition, much greater than typically seen. This is stable. There is cerebral volume loss for age, with resultant ventricular and sulcal prominence. There are periventricular and deep white matter chronic small vessel ischemic changes. There is intracranial internal carotid artery atherosclerosis. Skull and face: Calvarium and visualized facial bones appear intact, without suspicious lesions. Sinuses: Visualized sinuses and mastoids are clear. IMPRESSION: 1. Findings are stable. 2. No evidence acute stroke, hemorrhage, or mass. 3. Extensive symmetric bilateral iron deposition, not significantly changed. Dictated by: Terrell Carlson M.D. on 04/06/2020 at 10:11 Approved by: Terrell Carlson M.D. on 04/06/2020 at 10:13
--- NOTE | 2020-04-06 09:43 | DI.CT.S_ITS ---
PROCEDURE: CT ANGIO HEAD AND NECK INDICATIONS: feels off balance, new. hx of cva TECHNIQUE: Pre-contrast 4.5 mm thick sections acquired from the foramen magnum to the vertex. After the administration of intravenous contrast, 1 mm thick sections acquired from the aortic arch through the [place]. Post-contrast 4.5 mm thick sections then re-acquired from the foramen magnum to the vertex. 3-dimensional nphtdqz-jyfeyxrtb-mjazezrutr (MIP) and/or volume rendering reformats were acquired of the central intracranial vasculature and neck separately. COMPARISON: , CT, CT HEAD/BRAIN WO CON, 04/06/2020, 9:49. FINDINGS: Image quality: Excellent. BRAIN: CSF spaces: Ventricles are normal in size and shape. Basal cisterns are patent. No extra-axial fluid collections. Brain: No midline shift. No intracranial bleeds or masses. Bilateral, symmetric brain densities noted in the bilateral basal ganglia, bilateral thalami, bilateral subcortical white matter and bilateral cerebellar dentate nuclei which could represent dystrophic calcification or iron deposition. Aponte-white matter interface appears intact. Skull and face: Calvarium and facial bones appear intact, without suspicious lesions. Orbits appear normal. Sinuses: Mucous retention cyst versus polyps noted in the maxillary sinuses bilaterally and the left sphenoid sinus. The mastoids are clear. HEAD CT ANGIOGRAPHY: Anterior circulation: Intracranial internal carotid arteries are normal in flow. Mild atherosclerotic calcification noted in the cavernous and clinoid segments of the internal carotid arteries bilaterally cause mild narrowing of the vessels. The flow within the paired anterior cerebral arteries is normal and symmetric. The flow within the middle cerebral arteries is normal and symmetric. The anterior communicating artery is seen. No aneurysms are seen. Posterior circulation: Atherosclerotic calcification noted in the V4 segment of the right vertebral artery which causes mild, short segment narrowing of the vessel. V4 segment of the left vertebral artery is fully patent. Basilar artery is fully patent. Flow within the posterior cerebral arteries is normal and symmetric. Normal flow noted in the right posterior communicating artery. No aneurysms are seen. The dural sinuses demonstrate normal postcontrast enhancement. NECK CT ANGIOGRAPHY: Carotid system: The great vessels demonstrate a conventional anatomy as they arise from the aortic arch. The origins of the common carotid arteries appear patent. The common carotid arteries demonstrate normal caliber and courses. Atherosclerotic calcifications noted in the origins of the internal carotid arteries bilaterally which causes less than 50% stenosis of the vessels. Posterior circulation: Atherosclerotic calcification noted in the origin of the right vertebral artery which causes mild narrowing of the vessel. Origin of the left vertebral artery is fully patent. The more superior extracranial portions of both vertebral arteries also demonstrate normal courses and calibers. They join to form a normal appearing basilar artery. Soft tissues: Visualized neck soft tissues demonstrate no suspicious abnormalities. Bones: No suspicious bony lesions. Spine degenerative disc disease and facet arthropathy. Visualized cervical spine appears normally aligned. IMPRESSION: 1. No acute intracranial disease process. 2. No large vessel occlusion, hemodynamically significant vascular stenosis, vascular dissection or aneurysm. Any quantitative measurements of stenosis were performed using NASCET criteria. Dictated by: Isabella Cloud MD, PhD on 04/06/2020 at 10:27 Approved by: Isabella Cloud MD, PhD on 04/06/2020 at 10:38
--- NOTE | 2020-04-06 10:48 | DI.MRI.S_ITS ---
PROCEDURE: MR STROKE Pre- and post-contrast brain MRI, non-contrast brain MR angiogram, pre- and postcontrast neck MR angiogram INDICATIONS: ataxia, off balance TECHNIQUE: Brain: Noncontrast axial T1 spin echo, axial T2 fast spin echo, sagittal and axial FLAIR, coronal T2 fast spin echo, axial gradient echo, axial diffusion and ADC through the brain. After the administration of contrast, axial 3D VIBE of the cranial vasculature and brain. Brain MRA: Non-contrast 3-D time of flight MR angiogram, with multiple nwqbwei-rqtnjmnxk-vxzcjmetkm (MIP) reformats performed. Neck MRA: Axial and sagittal TruFISP through the neck. Coronal dynamic MR angiogram during administration of contrast in the arterial and venous phases, with 3-dimenstional hmleczz-dfkbpxzrb-ufjskclhyh (MIP) reformats constructed from subtraction images. COMPARISON: [facility], MR, MR STROKE, 08/22/2018, 6:54. [facility], CT, CT HEAD/BRAIN WO CON, 04/06/2020, 9:49. FINDINGS: Image quality: Diagnostic, with note made of motion artifact. BRAIN: CSF spaces: Ventricles are normal in size and shape. Basal cisterns are patent. No extra-axial fluid collections. Brain: No intracranial bleeds or mass effects. Aponte-white matter interface is normal. Brain parenchymal volume loss is seen. Chronic small vessel ischemic changes are seen. Diffusion weighted images show no acute ischemic insults. The remote infarction of the deep white matter of the left frontal lobe can be seen. Brainstem appears normal. Normal intravascular flow voids are present. No abnormal intracranial enhancement. Symmetric basal ganglia calcium deposition is again seen. Skull and face: Calvarial marrow signal is normal. Orbits appear normal. Sinuses: There is a left sphenoid sinus mucous retention cyst as well as maxillary sinus mucous retention cysts. Sinuses and mastoids are otherwise relatively clear. BRAIN MR ANGIOGRAM: Anterior circulation: Intracranial internal carotid arteries are normal in size and enhancement. The flow within the paired anterior cerebral arteries is normal and symmetric. The flow within the middle cerebral arteries is normal and symmetric. The anterior communicating artery is seen. No stenoses, occlusions, or aneurysms. Posterior circulation: The visualized portions of the vertebral arteries demonstrate normal caliber, and join to form a normal appearing basilar artery. The flow within the posterior cerebral arteries is normal and symmetric. No stenoses, occlusions, or aneurysms. NECK MR ANGIOGRAM: Carotids: Great vessels demonstrate a conventional anatomy as they arise from the aortic arch. The origins of the common carotid arteries appear patent. The calibers and courses of both common carotid arteries are normal. The bifurcation regions appear normal bilaterally. The internal carotid arteries demonstrate normal course and caliber. Posterior circulation: The origins of the vertebral arteries appear patent. More superior portions of both vertebral arteries demonstrate normal course and caliber, and join to form a normal appearing basilar artery. Miscellaneous: Subclavian arteries appear patent. Pre-contrast images through the neck show no soft tissue abnormalities. IMPRESSION: BRAIN MRI: No findings of acute or subacute infarction can be seen. Note is made of age-appropriate brain parenchymal volume loss and chronic small vessel ischemic changes. Remote infarction seen of the deep white matter of the left frontal lobe. No masses or abnormal enhancement can be seen. BRAIN MR ANGIOGRAM: No significant intracranial arterial abnormality is seen. NECK MR ANGIOGRAM: Within the arteries of the neck, no hemodynamically significant stenosis can be seen. Dictated by: Roosevelt Solis M.D. on 04/06/2020 at 10:57 Approved by: Roosevelt Solis M.D. on 04/06/2020 at 11:03
[2020-04-06] MEDS: LABETALOL 20 MG/4 ML SYRINGE 5 MG IV (12:18)
[2020-04-06] MEDS: ASPIRIN 81 MG CHEW TAB 324 MG PO (12:19)
--- NOTE | 2020-04-06 12:37 | PC.NURSE ---
pt given labetol 5mg iv
== END 2020-04-06 13:07 | disposition home or self-care (01) ==
PROVIDERS: Emergency Provider Emergency Medicine; PCP Family Medicine
DX: R26.89 Other abnormalities of gait and mobility (principal); R07.9 Chest pain, unspecified; E78.5 Hyperlipidemia, unspecified; I10 Essential (primary) hypertension; I63.9 Cerebral infarction, unspecified
CPT/HCPCS: 36415; 70450; 70496; 70498; 70548; 70553; 71045; 80053; 82550; 83690; 84484; 85025; 85610; 85730; 93005; 96374; 99284; Q9967

== ENCOUNTER → 2020-05-28 08:57 | Outpatient (CLI) | payer MEDICARE, SELFPAY ==
--- NOTE | 2020-05-28 | DI.ECHO.S_ITS ---
[facility]---------+ [facility] +---------+ : : [address] : : : : [id number] : : : : Phone: [phone] +---------+ Echocardiogram Report + + :Name: AMANUEL ORNELAS Study Date: 05/28/2020 Height: 68 in : :[facility] Weight: 161 lb : : Gender: Male BSA: 1.9 m2 : :: 1945 Age: 75 yrs BP: 163/65 mmHg: :Reason For Study: : : Performed By: [facility] Lr : :Referring: HONORIO LOFTON : + + Interpretation Summary There is mild to moderately reduced leaflet mobility. The aortic valve is moderately calcified. There is mild to moderate aortic stenosis. Compared to the prior echo study, there has been an increase in the severity of aortic stenosis. There is mild aortic regurgitation. The right ventricular systolic pressure is estimated to be at least 34 mmHg based on an estimated right atrial pressure of 3 mm Hg. Procedure: A two-dimensional transthoracic echocardiogram with color flow and Doppler was performed. The study quality was technically good. Comparison is made with the echocardiogram of 08/27/18. The patient was in normal sinus rhythm during the exam. Left Ventricle: The left ventricle is normal in size. There is normal left ventricular wall thickness. The ejection fraction is estimated to be 55-60%. There are no focal wall motion abnormalities. Right Ventricle: The right ventricle is normal in size and function. Atria: The left atrium is moderately dilated. Right atrial size is normal. There is no Doppler evidence for an atrial septal defect. Mitral Valve: There is mild mitral annular calcification. There is borderline mitral valve prolapse. There is trace mitral regurgitation. Aortic Valve: The aortic valve is trileaflet. The aortic valve is moderately calcified. There is mild to moderately reduced leaflet mobility. The peak aortic velocity is 2.9 m/sec. The aortic valve mean gradient is 20.8 mmHg. The calculated aortic valve area is 1.3 cm2. The aortic valve area is 1.4 centimeters squared by planimetry. There is mild to moderate aortic stenosis. Compared to the prior echo study, there has been an increase in the severity of aortic stenosis. There is mild aortic regurgitation. There is an eccentric jet of aortic insufficiency directed against the anterior mitral leaflet. Tricuspid Valve: The tricuspid valve is normal in structure and function. There is trace tricuspid regurgitation. The right ventricular systolic pressure is estimated to be at least 34 mmHg based on an estimated right atrial pressure of 3 mm Hg. Pulmonic Valve: The pulmonic valve is normal in structure and function. There is trace pulmonic regurgitation. Great Vessels: The aortic root is moderately dilated. The ascending aorta is mildly enlarged. The pulmonary artery is normal size. The IVC is of normal diameter and collapses greater than 50% with a sniff. This suggests a low right atrial pressure of 3 mm Hg. Pericardium/ Pleura There is no pericardial effusion. There is no pleural effusion. MMode/2D Measurements & Calculations LVIDd: 5.5 cm LVOT diam: 2.4 cm LVIDs: 3.3 cm Ao root diam: 4.2 cm FS: 40.6 % asc Aorta Diam: 3.7 cm EPSS: 0.55 cm Ao Arch Diam (Prox Trans): 2.8 cm IVSd: 0.99 cm LVPWd: 0.87 cm LV sousa. diameter/BSA (cm/m^2): 3.0 LV sys. diameter/BSA (cm/m^2): 1.8 LA dimension: 3.7 cm RA long axis: 4.7 cm LA A2 area: 24.4 cm2 RA area: 16.6 cm2 LA A4 area: 22.8 cm2 RA vol: 49.6 ml LA length (vol): 5.7 cm RA : 26.6 ml/m2 LA vol: 82.9 ml IVC diam: 1.6 cm LA vol index: 44.5 ml/m2 TAPSE: 2.1 cm JULISSA (plan): 1.4 cm2 Doppler Measurements & Calculations Ao V2 max: 290.6 cm/sec LVOT Max Danny: 83.1 cm/sec Ao V2 mean: 222.6 cm/sec LV V1 max P.8 mmHg Ao max P.8 mmHg LV V1 VTI: 21.0 cm Ao mean P.8 mmHg JULISSA(I,D): 1.3 cm2 Ao V2 VTI: 68.6 cm JULISSA(V,D): 1.2 cm2 sev ratio: 0.31 JULISSA indexed to BSA (cm^2/m^2): 0.72 AI P1/2t: 615.3 msec AI dec slope: 172.5 cm/sec2 MV E max danny: 49.6 cm/sec TR max danny: 279.7 cm/sec MV A max danny: 80.9 cm/sec TR max P.3 mmHg MV E/A: 0.61 PA V2 max: 65.5 cm/sec Med Peak E' Danny: 3.8 cm/sec PA V2 mean: 42.9 cm/sec E/E' med: 13.1 PA mean P.85 mmHg Lat Peak E' Danny: 4.7 cm/sec PA pr(Accel): 39.6 mmHg E/E' lat: 10.5 E/e' average: 11.8 MV dec time: 0.15 sec SV(LVOT): 91.6 ml Reading Physician:01:40 PM
== END ==
PROVIDERS: PCP Family Medicine; Referring Provider Family Medicine; Visit Provider Family Medicine
DX: I35.2 Nonrheumatic aortic (valve) stenosis with insufficiency (principal); I77.810 Thoracic aortic ectasia
CPT/HCPCS: 93306

== ENCOUNTER → 2021-08-30 08:00 | Outpatient (CLI) | payer MEDICARE, SELFPAY ==
--- NOTE | 2021-08-30 | DI.ECHO.S_ITS ---
[place] +---------+ [facility] +---------+ : : [address] : : : : [id number] : : : : Phone: [phone] +---------+ Echocardiogram Report + + :Name: AMANUEL ORNELAS Study Date: 08/30/2021 Height: 68.5 in: :[facility] ReadingLocation: Weight: 159 lb : : Gender: Male BSA: 1.9 m2 : :: 1945 Age: 76 yrs BP: 154/90 mmHg: :Reason For Study: AORTIC STENOSIS : :Ordering Physician: ROLLY, : :HONORIO Performed By: Clementine Madera : :Referring: HONORIO LOFTON : + + Interpretation Summary The left ventricle is normal in size. Left ventricular systolic function appears normal without focal wall motion abnormalities. The ejection fraction is estimated to be 55-60%. LVEF has not changed. Diastolic parameters suggest probable normal left ventricular diastolic function and normal filling pressures. The right ventricle is normal in size and function. The right ventricular systolic pressure is estimated to be at least 30 mmHg based on an estimated right atrial pressure of 3 mm Hg. The left atrial size is normal. Right atrial size is normal. There is mild mitral regurgitation. There is moderate aortic stenosis. The peak aortic velocity is 3.28 m/sec. The calculated aortic valve area is 1.2 cm2. Probable minimal increased since prior study. There is mild aortic regurgitation. There is no other significant valvular heart disease. The aortic root is moderately dilated. Procedure: A two-dimensional transthoracic echocardiogram with color flow and Doppler was performed. The study quality was technically adequate. Comparison is made with the echocardiogram of 05/28/2020. The patient was in sinus rhythm with heart rates between 63-66 bpm during the exam. Left Ventricle: The left ventricle is normal in size. There is mild concentric left ventricular hypertrophy. Left ventricular systolic function appears normal without focal wall motion abnormalities. The ejection fraction is estimated to be 55-60%. Diastolic parameters suggest probable normal left ventricular diastolic function and normal filling pressures. Right Ventricle: The right ventricle is normal in size and function. Atria: The left atrial size is normal. Right atrial size is normal. There is no Doppler evidence for an interatrial shunt. Mitral Valve: There is mild to moderate mitral annular calcification. There is a flat closure plane of the the mitral valve leaflets. There is mild mitral regurgitation. Aortic Valve: The aortic valve is moderately calcified. There is moderate aortic stenosis. The peak aortic velocity is 3.28 m/sec. The aortic valve mean gradient is 22 mmHg. The calculated aortic valve area is 1.2 cm2. There is mild aortic regurgitation. Tricuspid Valve: The tricuspid valve is normal in structure and function. There is mild tricuspid regurgitation. The right ventricular systolic pressure is estimated to be at least 30 mmHg based on an estimated right atrial pressure of 3 mm Hg. Pulmonic Valve: The pulmonic valve leaflets are thin and pliable; valve motion is normal. There is mild pulmonic regurgitation. There is no other significant valvular heart disease. Great Vessels: The aortic root is moderately dilated. The ascending aorta is at the upper limits of normal in size. The IVC is of normal diameter and collapses greater than 50% with a sniff. This suggests a low right atrial pressure of 3 mm Hg. Pericardium/ Pleura There is no pericardial effusion. There is no pleural effusion. MMode/2D Measurements & Calculations LVIDd: 4.1 cm LVOT diam: 2.4 cm LVIDs: 2.6 cm Ao root diam: 4.3 cm FS: 35.5 % asc Aorta Diam: 3.6 cm IVSd: 1.2 cm Ao Arch Diam (Prox Trans): 3.2 cm LVPWd: 1.3 cm LV sousa. diameter/BSA (cm/m^2): 2.2 LV sys. diameter/BSA (cm/m^2): 1.4 LA A2 area: 19.5 cm2 RA long axis: 4.6 cm LA A4 area: 17.6 cm2 RA area: 15.2 cm2 LA length (vol): 5.1 cm RA vol: 42.9 ml LA vol: 57.2 ml RA : 23.0 ml/m2 LA vol index: 30.6 ml/m2 IVC diam: 1.4 cm RVD1 (basal): 3.8 cm RVD2 (mid): 3.7 cm TAPSE: 1.8 cm Doppler Measurements & Calculations Ao V2 max: 328.5 cm/sec LVOT Max Danny: 83.3 cm/sec Ao V2 mean: 231.7 cm/sec LV V1 max P.8 mmHg Ao max P.2 mmHg LV V1 VTI: 20.9 cm Ao mean P.7 mmHg JULISSA(I,D): 1.3 cm2 Ao V2 VTI: 75.1 cm JULISSA(V,D): 1.2 cm2 sev ratio: 0.28 JULISSA indexed to BSA (cm^2/m^2): 0.68 MV E max danny: 75.9 cm/sec TR max danny: 259.1 cm/sec MV A max danny: 80.8 cm/sec TR max P.8 mmHg MV E/A: 0.94 PA V2 max: 96.9 cm/sec Med Peak E' Danny: 3.9 cm/sec PA V2 mean: 61.2 cm/sec E/E' med: 19.3 PA mean P.8 mmHg Lat Peak E' Danny: 6.6 cm/sec PA pr(Accel): 44.7 mmHg E/E' lat: 11.5 E/e' average: 15.4 MV dec time: 0.28 sec SV(LVOT): 95.0 ml Reading Physician:01:24 PM
== END ==
PROVIDERS: PCP Family Medicine; Referring Provider Family Medicine; Visit Provider Family Medicine
DX: I08.3 Combined rheumatic disorders of mitral, aortic and tricuspid valves; I77.810 Thoracic aortic ectasia
CPT/HCPCS: 93306

== ENCOUNTER → 2021-12-22 11:22 | Outpatient (CLI) | payer MEDICARE, SELFPAY | PROVIDERS: PCP Family Medicine; Referring Provider Family Medicine; Visit Provider Family Medicine | DX: Z13.820 Encounter for screening for osteoporosis (principal); M85.89 Other specified disorders of bone density and structure, multiple sites; Z87.311 Personal history of (healed) other pathological fracture | CPT/HCPCS: 77080 ==

== ENCOUNTER → 2022-04-24 08:19 | Outpatient (CLI) | payer MEDICARE, SELFPAY ==
[2022-04-24 09:30] LABS: Add Manual Diff / Slide Review NO; Basophils Absolute Auto 0 /uL (0-100); Basophils Percent Auto 0.3 % (0-2); Eosinophils Absolute Auto 300 /uL (0-450); Eosinophils Percent Auto 5.4 % (2-4); Hematocrit 47.2 % (41-53); Hemoglobin 16.2 g/dL (13.5-17.5); Lymphocytes Absolute Auto 1200 /uL (1100-4500); Lymphocytes Percent Auto 18.4 % (25-40); Mean Corpuscular HGB Conc 34.2 % (30-36); Mean Corpuscular Hemoglobin 30.9 PG (26-34); Mean Corpuscular Volume 90.1 fL (80-100); Monocytes Absolute Auto 500 /uL (0-900); Monocytes Percent Auto 7.3 % (3-14); Neutrophils Absolute Auto 4300 /uL (1500-7000); Neutrophils Percent Auto 68.6 % (50-75); Platelet Count 255 X10^3/uL (150-400); Red Blood Cell Count 5.23 X10^6/uL (4.5-5.9); Red Cell Distribution Width 13.9 % (11.6-14.8); White Blood Cell Count 6.3 X10^3/uL (4.5-11.0)
[2022-04-24 12:14] LABS: Thyroid Stimulating Hormone 1.14 uIU/mL (0.47-4.68)
[2022-04-25 16:34] LABS: Alanine Aminotransferase 16 IU/L (<50); Albumin Globulin Ratio 1.4 (1.0-2.8); Alkaline Phosphatase 81 U/L (38-126); Aspartate Aminotransferase 21 IU/L (17-59); BUN Creatinine Ratio 16.4 (6-22); Bilirubin Total 0.4 mg/dL (0.2-1.3); Blood Urea Nitrogen 12 mg/dL (9-20); Calcium 9.1 mg/dL (8.4-10.2); Carbon Dioxide 31 mmol/L (22-32); Chloride 101 mmol/L (98-107); Cholesterol 168 mg/dL (140-199); Estimated Glomerular Filt Rate > 60 mL/min (>60); Globulin 2.9 g/dL (1.7-4.1); Glucose 102 mg/dL (80-110); HDL Cholesterol 53 mg/dL (40-60); HEMOLYSIS < 15 (0-50); LDL Cholesterol Calculated 101 mg/dL (<100); Potassium 4.3 mmol/L (3.4-5.1); Sodium 140 mmol/L (137-145); Total Protein 6.9 g/dL (6.3-8.2); Triglycerides 71 mg/dL (35-150)
[2022-04-25 16:46] LABS: LDL Cholesterol Direct 100 mg/dL (<100)
[2022-04-25 17:25] LABS: Prostate Specific Antigen Scrn 2.31 ng/mL (0.1-4.0)
== END ==
PROVIDERS: PCP Family Medicine; Referring Provider Family Medicine; Visit Provider Family Medicine
DX: I10 Essential (primary) hypertension (principal); G45.9 Transient cerebral ischemic attack, unspecified; E78.5 Hyperlipidemia, unspecified; I63.50 Cerebral infarction due to unspecified occlusion or stenosis of unspecified cerebral artery
CPT/HCPCS: 36415; 80053; 80061; 83721; 84443; 85025; G0103

== ENCOUNTER → 2023-01-03 06:52 | Outpatient (CLI) | payer MEDICARE, SELFPAY ==
[2023-01-03 08:22] LABS: Alanine Aminotransferase 21 IU/L (<50); Albumin 3.8 g/dL (3.5-5.0); Albumin Globulin Ratio 1.5 (1.0-2.8); Alkaline Phosphatase 78 U/L (38-126); Aspartate Aminotransferase 28 IU/L (17-59); Bilirubin Total 0.6 mg/dL (0.2-1.3); Blood Urea Nitrogen 15 mg/dL (9-20); Calcium 8.8 mg/dL (8.4-10.2); Carbon Dioxide 31 mmol/L (22-32); Chloride 102 mmol/L (98-107); Cholesterol 159 mg/dL (140-199); Estimated Glomerular Filt Rate > 60 mL/min (>60); Globulin 2.5 g/dL (1.7-4.1); Glucose 99 mg/dL (80-110); HDL Cholesterol 54 mg/dL (40-60); HEMOLYSIS < 15 (0-50); LDL Cholesterol Calculated 94 mg/dL (<100); Potassium 4.1 mmol/L (3.4-5.1); Sodium 138 mmol/L (137-145); Total Protein 6.3 g/dL (6.3-8.2); Triglycerides 54 mg/dL (35-150)
== END ==
PROVIDERS: PCP Family Medicine; Referring Provider Family Medicine; Visit Provider Family Medicine
DX: I10 Essential (primary) hypertension (principal); E78.5 Hyperlipidemia, unspecified; I63.50 Cerebral infarction due to unspecified occlusion or stenosis of unspecified cerebral artery
CPT/HCPCS: 36415; 80053; 80061

== ENCOUNTER → 2023-11-19 06:47 | Outpatient (CLI) | payer MEDICARE, SELFPAY ==
[2023-11-19 07:58] LABS: Add Manual Diff / Slide Review NO; Basophils Absolute Auto 0 /uL (0-100); Basophils Percent Auto 0.3 % (0-2); Eosinophils Absolute Auto 300 /uL (0-450); Eosinophils Percent Auto 6.5 % (2-4); Hemoglobin 15.2 g/dL (13.5-17.5); Lymphocytes Absolute Auto 1100 /uL (1100-4500); Lymphocytes Percent Auto 21.3 % (25-40); Mean Corpuscular HGB Conc 33.7 % (30-36); Mean Corpuscular Hemoglobin 31.2 PG (26-34); Mean Corpuscular Volume 92.4 fL (80-100); Monocytes Absolute Auto 500 /uL (0-900); Monocytes Percent Auto 9.8 % (3-14); Neutrophils Absolute Auto 3200 /uL (1500-7000); Neutrophils Percent Auto 62.1 % (50-75); Platelet Count 234 X10^3/uL (150-400); Red Blood Cell Count 4.87 X10^6/uL (4.5-5.9); White Blood Cell Count 5.2 X10^3/uL (4.5-11.0)
[2023-11-19 08:28] LABS: Alanine Aminotransferase 18 IU/L (<50); Albumin 3.9 g/dL (3.5-5.0); Albumin Globulin Ratio 1.4 (1.0-2.8); Alkaline Phosphatase 79 U/L (38-126); Aspartate Aminotransferase 28 IU/L (17-59); BUN Creatinine Ratio 24.7 (6-22); Bilirubin Total 0.6 mg/dL (0.2-1.3); Blood Urea Nitrogen 19 mg/dL (9-20); Calcium 8.8 mg/dL (8.4-10.2); Carbon Dioxide 28 mmol/L (22-32); Chloride 104 mmol/L (98-107); Cholesterol 171 mg/dL (140-199); Estimated Glomerular Filt Rate > 60 mL/min (>60); Globulin 2.7 g/dL (1.7-4.1); Glucose 105 mg/dL (80-110); HDL Cholesterol 71 mg/dL (40-60); HEMOLYSIS < 15 (0-50); LDL Cholesterol Calculated 89 mg/dL (<100); Potassium 4.3 mmol/L (3.4-5.1); Sodium 138 mmol/L (137-145); Total Protein 6.6 g/dL (6.3-8.2); Triglycerides 53 mg/dL (35-150)
[2023-11-19 08:52] LABS: TSH w/ Reflex to FT4 1.34 uIU/mL (0.47-4.68)
== END ==
PROVIDERS: PCP Student in an Organized Health Care Education/Training Program; Referring Provider Student in an Organized Health Care Education/Training Program; Visit Provider Student in an Organized Health Care Education/Training Program
DX: I10 Essential (primary) hypertension (principal)
CPT/HCPCS: 36415; 80053; 80061; 84443; 85025

== ENCOUNTER → 2024-07-14 08:05 | Outpatient (CLI) | payer MEDICARE, SELFPAY ==
--- NOTE | 2024-07-14 08:07 | DI.ECHO.S_ITS ---
[place] [facility]---------+ [facility] : : [address] : : [address] [address] : : [id number] : : Phone: [phone] Echocardiogram Report + + :Name: JARETH ORNELAS Study Date: 07/14/2024 Height: 68.5 in : :[facility] ReadingLocation: Weight: 155 lb : : Gender: Male BSA: 1.8 m2 : :: 1945 Age: 79 yrs BP: 168/104 mmHg: :Reason For Study: AORTIC STENOSIS : :Ordering Physician: WADE, : :MEY Performed By: Clemnetine Madera : :Referring: MEY OLVERA : + + Interpretation Summary The ejection fraction is estimated to be 50-55%. Grade I diastolic dysfunction. The right ventricle is normal in size and function. There is mild tricuspid regurgitation. The right ventricular systolic pressure is estimated to be at least 31 mmHg based on an estimated right atrial pressure of 3 mm Hg. The left atrium is mildly dilated. There is mild mitral regurgitation. There is moderate to severe aortic stenosis. There is mild aortic regurgitation. Procedure: A two-dimensional transthoracic echocardiogram with color flow and Doppler was performed. The study quality was technically adequate. Comparison is made with the echocardiogram of 08/30/2021. The patient was in sinus rhythm with heart rates between 65-71 bpm during the exam. Left Ventricle: Proximal septal thickening is noted. The left ventricle is normal in size. The ejection fraction is estimated to be 50-55%. There are no obvious focal wall motion abnormalities noted but poor endocardial definition reduces the sensitivity for the detection of such. Grade I diastolic dysfunction. Right Ventricle: The right ventricle is normal in size and function. Atria: The left atrium is mildly dilated. Right atrial size is normal. There is no Doppler evidence for an interatrial shunt. Mitral Valve: The mitral valve leaflets are mildly calcified. There is mild mitral annular calcification. There is mild mitral regurgitation. Aortic Valve: The aortic valve is moderately calcified. The peak aortic velocity is 3.2 m/sec. The aortic valve mean gradient is 25 mmHg. The calculated aortic valve area is 0.84 cm2. There is moderate to severe aortic stenosis. There is mild aortic regurgitation. Tricuspid Valve: The tricuspid valve leaflets are thin and pliable. There is mild tricuspid regurgitation. The right ventricular systolic pressure is estimated to be at least 31 mmHg based on an estimated right atrial pressure of 3 mm Hg. Pulmonic Valve: The pulmonic valve leaflets are thin and pliable; valve motion is normal. There is mild pulmonic regurgitation. Great Vessels: The aortic root is mildly dilated. The ascending aorta is at the upper limits of normal in size. The IVC is of normal diameter and collapses greater than 50% with a sniff. This suggests a low right atrial pressure of 3 mm Hg. Pericardium/ Pleura There is no pericardial effusion. There is no pleural effusion. MMode/2D Measurements & Calculations LVIDd: 4.4 cm LVOT diam: 2.3 cm LVIDs: 2.9 cm Ao root diam: 4.3 cm FS: 34.9 % asc Aorta Diam: 3.7 cm IVSd: 1.5 cm Ao Arch Diam (Prox Trans): 3.3 cm LVPWd: 0.97 cm LV sousa. diameter/BSA (cm/m^2): 2.4 LV sys. diameter/BSA (cm/m^2): 1.6 LA A2 area: 22.4 cm2 RA long axis: 4.7 cm LA A4 area: 20.3 cm2 RA area: 15.2 cm2 LA length (vol): 5.1 cm RA vol: 42.0 ml LA vol: 75.0 ml RA : 22.8 ml/m2 LA vol index: 40.6 ml/m2 IVC diam: 1.7 cm RVD1 (basal): 3.7 cm RVD2 (mid): 3.4 cm TAPSE: 1.8 cm Doppler Measurements & Calculations Ao V2 max: 323.1 cm/sec LVOT Max Danny: 63.9 cm/sec Ao V2 mean: 234.0 cm/sec LV V1 max P.6 mmHg Ao max P.8 mmHg LV V1 VTI: 17.3 cm Ao mean P.8 mmHg JULISSA(I,D): 0.99 cm2 Ao V2 VTI: 74.6 cm JULISSA(V,D): 0.84 cm2 sev ratio: 0.23 JULISSA indexed to BSA (cm^2/m^2): 0.54 MV E max danny: 64.1 cm/sec TR max danny: 266.6 cm/sec MV A max danny: 87.9 cm/sec TR max P.4 mmHg MV E/A: 0.73 PA V2 max: 84.0 cm/sec Med Peak E' Danny: 4.0 cm/sec PA V2 mean: 52.0 cm/sec E/E' med: 16.1 PA mean P.3 mmHg MV dec time: 0.22 sec PA pr(Accel): 49.5 mmHg SV(LVOT): 73.9 ml Reading Physician:04:16 PM
== END ==
PROVIDERS: PCP Student in an Organized Health Care Education/Training Program; Referring Provider Student in an Organized Health Care Education/Training Program; Visit Provider Student in an Organized Health Care Education/Training Program
DX: I08.3 Combined rheumatic disorders of mitral, aortic and tricuspid valves (principal); I77.810 Thoracic aortic ectasia
CPT/HCPCS: 93306

== ENCOUNTER → 2024-11-26 07:26 | Outpatient (CLI) | payer MEDICARE, SELFPAY ==
[2024-11-26 08:03] LABS: Add Manual Diff / Slide Review NO; Hematocrit 42.0 % (41-53); Hemoglobin 14.6 g/dL (13.5-17.5); Lymphocytes Absolute Auto 1000 /uL (1100-4500); Mean Corpuscular HGB Conc 34.8 % (30-36); Mean Corpuscular Hemoglobin 31.9 PG (26-34); Mean Corpuscular Volume 91.7 fL (80-100); Platelet Count 221 X10^3/uL (150-400)
[2024-11-26 08:29] LABS: Hemoglobin A1C% w Est Avg Glu 5.2 % (4.0-6.0)
[2024-11-26 08:51] LABS: HEMOLYSIS 15 (0-50); Iron 91 ug/dL (49-181)
[2024-11-26 08:54] LABS: Alanine Aminotransferase 27 IU/L (<50); Albumin 3.9 g/dL (3.5-5.0); Albumin Globulin Ratio 1.7 (1.0-2.8); Alkaline Phosphatase 73 U/L (38-126); Blood Urea Nitrogen 27 mg/dL (9-20); Carbon Dioxide 32 mmol/L (22-32); Chloride 105 mmol/L (98-107); Cholesterol 186 mg/dL (140-199); Estimated Glomerular Filt Rate > 60 mL/min (>60); Globulin 2.3 g/dL (1.7-4.1); HEMOLYSIS < 15 (0-50); Total Protein 6.2 g/dL (6.3-8.2); Triglycerides 65 mg/dL (35-150)
[2024-11-26 08:56] LABS: Calcium 9.0 mg/dL (8.4-10.2); Glucose 106 mg/dL (70-99); HDL Cholesterol 56 mg/dL (40-60); Potassium 4.4 mmol/L (3.4-5.1); Sodium 139 mmol/L (137-145)
[2024-11-26 09:04] LABS: Percent Iron Saturation 34 % (20-50); Total Iron Binding Capacity 267 ug/dL (261-462); Transferrin 210 mg/dL (206-381)
[2024-11-26 09:23] LABS: Thyroid Stimulating Hormone 0.956 uIU/mL (0.47-4.68)
[2024-11-26 10:42] LABS: Microalbumi Creatinin Ratio Ur 14.0 ug/mg CR (<30)
== END ==
PROVIDERS: PCP Student in an Organized Health Care Education/Training Program; Referring Provider Student in an Organized Health Care Education/Training Program; Visit Provider Student in an Organized Health Care Education/Training Program
DX: I10 Essential (primary) hypertension (principal); Z13.0 Encounter for screening for diseases of the blood and blood-forming organs and certain disorders involving the immune mechanism; E78.5 Hyperlipidemia, unspecified; Z13.29 Encounter for screening for other suspected endocrine disorder
CPT/HCPCS: 80053; 80061; 82043; 82570; 83036; 83540; 83550; 84443; 85025